=== PATIENT | male | born 1995 | race Caucasian/White ===

== ENCOUNTER 2023-12-18 06:21 | Day surgery (SDC) | payer OTHER, SELFPAY ==
[2023-12-18] VITALS (12 sets, daily range): BP systolic 107–141; BP diastolic 68–93; BMI 25.4
[2023-12-18] MEDS: CELEBREX 200 MG PO (09:08)
[2023-12-18] MEDS: TYLENOL 1000 MG PO (09:08)
[2023-12-18] MEDS: NORMOSOL-R 1000 IV (09:22)
[2023-12-18] MEDS: TRANSDERM-SCOP 1 PATCH TRANSDERM (09:33)
== END 2023-12-18 15:01 | disposition home or self-care (01) ==
LOC: SDS 06:21
PROVIDERS: ATTENDING PHYSICIAN Orthopaedic Surgery Hand Surgery
DX: S42.142A Displaced fracture of glenoid cavity of scapula, left shoulder, initial encounter for closed fracture (principal); X58.XXXA Exposure to other specified factors, initial encounter
CPT/HCPCS: 23585; 23455; C1713; 73020